=== PATIENT | male | born 1935 | race Caucasian/White ===

== ENCOUNTER 2016-03-27 23:20 | Emergency (ER) | payer MEDICARE, BC | END 2016-03-28 02:41 | disposition home or self-care (01) | DX: R31.0 Gross hematuria (principal); R35.0 Frequency of micturition; R30.0 Dysuria; E10.9 Type 1 diabetes mellitus without complications; Z79.4 Long term (current) use of insulin; Z79.82 Long term (current) use of aspirin ==

== ENCOUNTER 2021-11-20 12:19 | Outpatient (CLI) | payer MEDICARE, BC | END 2021-11-20 12:20 | disposition critical access hospital (66) | LOC: EMS 12:19 | DX: R68.83 Chills (without fever) (principal); R25.1 Tremor, unspecified; R11.0 Nausea | CPT/HCPCS: A0425; A0429 ==

== ENCOUNTER 2021-11-20 12:44 | Emergency (ER) | payer MEDICARE, BC ==
--- NOTE | 2021-11-20 13:04 | ED Physician Documentation ---
History of Present Illness - Stated complaint Stated Complaint: NAUSEA,CHILLS,SHAKING - Chief complaint Chief Complaint: Neuro - History obtained from History obtained from: Patient, Family, EMS - History of Present Illness Timing: Today Pain level max: 0 Pain level now: 0 - Additonal information Additional information: Patient is an 86-year-old male history of urinary incontinence. Diabetes, neuropathy in his feet. states he is able to stand at baseline but is mostly wheelchair-bound. Began having shaking chills at home today as well as nausea. Called EMS. Patient brought here for further evaluation. He denies any pain anywhere. He states he feels very tired. Does have a history of urinary tract infections. No headache. No falls. No trauma. Mild cough. Review of Systems Ten Systems: 10 systems reviewed and negative Constitutional: reports: Chills. denies: Fever Ears: denies: Ear pain Nose: reports: Rhinorrhea / runny nose. denies: Congestion Cardiac: denies: Chest pain / pressure, Palpitations Respiratory: reports: Cough. denies: Dyspnea GI: reports: Nausea. denies: Abdominal Pain, Vomiting, Diarrhea : reports: Incontinent Skin: denies: Rash Musculoskeletal: denies: Neck pain, Back pain Neurologic: denies: Headache PD PAST MEDICAL HISTORY - Past Medical History Past Medical History: Yes Endocrine/Autoimmune: Type 1 diabetes : Other - Past Surgical History Past Surgical History: Yes HEENT: Tonsil/Adenoidectomy - Present Medications Home Medications: Ambulatory Orders Medication Instructions Recorded Confirmed Aspirin [Nj Chewable Aspirin] 81 mg PO DAILY 08/02/14 08/19/14 Insulin Glargine,Hum.rec.anlog 18 units SQ ONCE 08/02/14 08/19/14 [Lantus] Insulin Lispro [Humalog] 5 unit SQ TID 08/02/14 08/19/14 Dicloxacillin Sodium 500 mg PO QID 7 Days capsule 08/19/14 Tamsulosin [Flomax] 0.4 mg PO DAILY 08/19/14 08/19/14 - Allergies Allergies/Adverse Reactions: Allergies Allergy/AdvReac Type Severity Reaction Status Date / Time cephalexin AdvReac Rash Verified 11/20/21 12:51 cephalexin monohydrate * AdvReac Rash Verified 11/20/21 12:51 [From Keflex] shellfish derived AdvReac Rash Verified 11/20/21 12:51 Sulfa (Sulfonamide AdvReac Rash Verified 11/20/21 12:51 Antibiotics) - Living Situation Living Situation: reports: With family Living Arrangement: reports: At home - Social History Does the pt smoke?: No Smoking Status: Never smoker Does the pt drink ETOH?: Yes Does the pt have substance abuse?: No - Immunizations Immunizations are current?: Yes - POLST Patient has POLST: No PD ED PE NORMAL - Vitals Vital signs reviewed: Yes - General General: Alert and oriented X 3, No acute distress, Well developed/nourished - HEENT HEENT: PERRL, Moist mucous membranes - Neck Neck: Supple, no meningeal sign - Cardiac Cardiac: RRR, Strong equal pulses - Respiratory Respiratory: No respiratory distress, Clear bilaterally - Abdomen Abdomen: Soft, Non tender, Non distended - Derm Derm: Warm and dry, No rash - Extremities Extremities: No edema, No calf tenderness / cord, Other (No open wounds on the feet. No cellulitis.) - Neuro Neuro: Alert and oriented X 3 - Psych Psych: Normal mood, Normal affect Results - Vitals Vitals: Vital Signs - 24 hr 11/20/21 11/20/21 11/20/21 12:51 13:24 13:30 Temperature 37.2 C Heart Rate 101 H 96 100 Respiratory 18 23 17 Rate Blood Pressure 173/77 H 154/71 H 134/97 H O2 Saturation 98 97 99 11/20/21 11/20/21 11/20/21 14:00 14:30 15:00 Temperature Heart Rate 97 96 97 Respiratory 19 18 16 Rate Blood Pressure 134/97 H 130/90 H 159/78 H O2 Saturation 97 98 96 11/20/21 11/20/21 15:30 16:00 Temperature 36.5 C Heart Rate 96 98 Respiratory 16 16 Rate Blood Pressure 160/80 H 168/72 H O2 Saturation 98 97 Oxygen O2 Source Room air - EKG (time done) 1251 Rate: Rate (enter#) (101) Rhythm: Sinus tachycardia Clubb: Anterior hemiblock (LAFB) Intervals: Normal MN, RBBB - Labs Labs: Laboratory Tests 11/20/21 11/20/21 11/20/21 13:15 13:15 13:15 WBC 17.9 H RBC 5.11 Hgb 15.4 Hct 46.9 MCV 91.8 MCH 30.1 MCHC 32.8 RDW 13.5 Plt Count 189 MPV 9.8 Neut # (Auto) 16.0 H Lymph # (Auto) 0.7 L [place] # (Auto) 1.1 H Eos # (Auto) 0.0 Baso # (Auto) 0.1 Absolute Nucleated RBC 0.00 Nucleated RBC % 0.0 PT 11.7 INR 1.0 APTT 29.9 Sodium 138 Potassium 4.2 Chloride 102 Carbon Dioxide 27 Anion Gap 9.0 BUN 20 Creatinine 1.0 Estimated GFR (MDRD) 71 L Glucose 173 H Lactic Acid Calcium 9.9 Total Bilirubin 0.6 AST 16 ALT 18 Alkaline Phosphatase 52 Total Protein 7.4 Albumin 4.1 Globulin 3.3 Albumin/Globulin Ratio 1.2 Lipase 28 Urine Color Urine Clarity Urine pH Ur Specific [place] Urine Protein Urine Glucose (UA) Urine Ketones Urine Occult Blood Urine Nitrite Urine Bilirubin Urine Urobilinogen Ur Leukocyte Esterase Ur Microscopic Review Urine Culture Comments Nasal Adenovirus (PCR) Nasal B. parapertussis DNA (PCR) Nasal Coronavir 229E PCR Nasal Coronavir HKU1 PCR Nasal Coronavir NL63 PCR Nasal Coronavir OC43 PCR Nasal Enterovir/Rhinovir PCR Nasal Influenza B PCR Nasal Influenza A PCR Nasal Parainfluen 1 PCR Nasal Parainfluen 2 PCR Nasal Parainfluen 3 PCR Nasal Parainfluen 4 PCR Nasal RSV (PCR) Nasal B.pertussis DNA PCR Nasal C.pneumoniae (PCR) Cameron Human Metapneumo PCR Nasal M.pneumoniae (PCR) Nasal SARS-CoV-2 (PCR) 11/20/21 11/20/21 11/20/21 13:15 13:25 13:32 WBC RBC Hgb Hct MCV MCH MCHC RDW Plt Count MPV Neut # (Auto) Lymph # (Auto) [place] # (Auto) Eos # (Auto) Baso # (Auto) Absolute Nucleated RBC Nucleated RBC % PT INR APTT Sodium Potassium Chloride Carbon Dioxide Anion Gap BUN Creatinine Estimated GFR (MDRD) Glucose Lactic Acid 1.4 Calcium Total Bilirubin AST ALT Alkaline Phosphatase Total Protein Albumin Globulin Albumin/Globulin Ratio Lipase Urine Color YELLOW Urine Clarity CLEAR Urine pH 6.5 Ur Specific [place] 1.015 Urine Protein NEGATIVE Urine Glucose (UA) 100 H Urine Ketones NEGATIVE Urine Occult Blood NEGATIVE Urine Nitrite NEGATIVE Urine Bilirubin NEGATIVE Urine Urobilinogen 0.2 (NORMAL) Ur Leukocyte Esterase NEGATIVE Ur Microscopic Review NOT INDICATED Urine Culture Comments NOT INDICATED Nasal Adenovirus (PCR) NOT DETECTED Nasal B. parapertussis DNA (PCR) NOT DETECTED Nasal Coronavir 229E PCR NOT DETECTED Nasal Coronavir HKU1 PCR NOT DETECTED Nasal Coronavir NL63 PCR NOT DETECTED Nasal Coronavir OC43 PCR NOT DETECTED Nasal Enterovir/Rhinovir PCR NOT DETECTED Nasal Influenza B PCR NOT DETECTED Nasal Influenza A PCR NOT DETECTED Nasal Parainfluen 1 PCR NOT DETECTED Nasal Parainfluen 2 PCR NOT DETECTED Nasal Parainfluen 3 PCR NOT DETECTED Nasal Parainfluen 4 PCR NOT DETECTED Nasal RSV (PCR) NOT DETECTED Nasal B.pertussis DNA PCR NOT DETECTED Nasal C.pneumoniae (PCR) NOT DETECTED Cameron Human Metapneumo PCR NOT DETECTED Nasal M.pneumoniae (PCR) NOT DETECTED Nasal SARS-CoV-2 (PCR) NOT DETECTED - Rads (name of study) cxr Radiology: Final report received, EMP read contemporaneously, See rad report CT abd/pelvis Radiology: Final report received, EMP read contemporaneously, See rad report PD MEDICAL DECISION MAKING - ED course Complexity details: reviewed results, re-evaluated patient, considered differential, d/w patient, d/w family ED course: 86-year-old male with an episode of shaking at home today. Unclear etiology. No loss of consciousness. Had no postictal period. No fevers. No headache. No focal neurological deficits. No trauma. No acute findings on laboratory testing other than a leukocytosis. No evidence of sepsis. He does have constipation on CT scan. Patient adamantly refuses any IV contrast for the CT scan. Patient is requesting to be discharged home at this time. He states that he feels normal. No focal neurological deficits. NIH stroke scale 0. Patient and family counseled regarding signs and symptoms for which I believe and urgent re-evaluation would be necessary. Patient with good understanding of and agreement to plan and is comfortable going home at this time This document was made in part using voice recognition software. While efforts are made to proofread this document, sound alike and grammatical errors may occur. Departure - Departure Disposition: Home, Self Care Clinical Impression: Shaking Constipation Qualifiers: Constipation type: unspecified constipation type Qualified Code(s): K59.00 - Constipation, unspecified Leukocytosis Qualifiers: Leukocytosis type: unspecified Qualified Code(s): D72.829 - Elevated white blood cell count, unspecified Condition: Good Instructions: ED Constipation Follow-Up: Elvis Wren MD [Primary Care Provider] - Within 3 Days Comments: Please follow-up with your doctor for further care. The cause of your symptoms today is unclear. You do have an elevated white blood cell count, but your other markers of infection are negative. Your chest x-ray, viral panel, urinalysis and CT scan do not show any evidence of infection. You do not have any open sores. Please return if you worsen. Drink plenty of fluids. Discharge Date/Time: 11/20/21 16:33
[2021-11-20 13:21] LABS: BASOPHILS # (AUTO) 0.1 10^3/uL (0.0-0.1); BASOPHILS % (AUTO) 0.4 %; EOSINOPHILS % (AUTO) 0.1 %; HCT - HEMATOCRIT 46.9 % (42.0-52.0); HGB - HEMOGLOBIN 15.4 g/dL (14.0-18.0); LYMPHOCYTES # (AUTO) 0.7 10^3/uL (1.5-3.5); LYMPHOCYTES % (AUTO) 3.6 %; MEAN CORPUSCULAR HEMOGLOBIN 30.1 pg (27.0-31.0); MEAN CORPUSCULAR HGB CONC 32.8 g/dL (32.0-36.0); MEAN CORPUSCULAR VOLUME 91.8 fL (80.0-94.0); MEAN PLATELET VOLUME 9.8 fL (7.4-11.4); MONOCYTES # (AUTO) 1.1 10^3/uL (0.0-1.0); MONOCYTES % (AUTO) 6.1 %; NEUTROPHILS % (AUTO) 89.4 %; PLT - PLATELET COUNT 189 10^3/uL (130-450); RED BLOOD COUNT 5.11 10^6/uL (4.70-6.10); RED CELL DISTRIBUTION WIDTH 13.5 % (12.0-15.0); WHITE BLOOD COUNT 17.9 x10^3/uL (4.8-10.8)
--- NOTE | 2021-11-20 13:21 | XRAY Report ---
PROCEDURE: Chest 1 View X-Ray INDICATIONS: cough TECHNIQUE: One view of the chest was acquired. COMPARISON: None FINDINGS: Surgical changes and devices: Ventriculoperitoneal shunt catheter is projected over the right hemith orax. Lungs and pleura: No pleural effusions or pneumothorax. Lungs are clear. Mediastinum: Mediastinal contours appear normal. Heart size is normal. Bones and chest wall: No suspicious bony lesions. Overlying soft tissues appear unremarkable. IMPRESSION: No acute cardiopulmonary findings. Reviewed by: Chelsea Smallwood MD on 11/20/2021 1:19 PM PDT Approved by: Chelsea Smallwood MD on 11/20/2021 1:19 PM PDT Station ID: [id number]
[2021-11-20 13:37] LABS: ALBUMIN 4.1 g/dL (3.2-5.5); ALBUMIN/GLOBULIN RATIO 1.2 (1.0-2.2); BILIRUBIN,TOTAL 0.6 mg/dL (0.2-1.0); CALCIUM 9.9 mg/dL (8.5-10.3); POTASSIUM 4.2 mmol/L (3.5-5.0); TOTAL PROTEIN 7.4 g/dL (6.7-8.2)
[2021-11-20 13:39] LABS: PT - PROTHROMBIN TIME 11.7 secs (9.9-12.6)
[2021-11-20 13:41] LABS: BILIRUBIN,URINE NEGATIVE (NEGATIVE); GLUCOSE, URINE (UA) 100 mg/dL (NEGATIVE); KETONES,URINE (UA) NEGATIVE (NEGATIVE); LEUKOCYTE ESTERASE, URINE NEGATIVE (NEGATIVE); NITRITE,URINE NEGATIVE (NEGATIVE); OCCULT BLOOD,URINE NEGATIVE (NEGATIVE); PH,URINE 6.5 PH (5.0-7.5); PROTEIN,URINE NEGATIVE (NEGATIVE); UROBILINOGEN,URINE 0.2 (NORMAL) E.U./dL (NORMAL)
[2021-11-20 13:44] LABS: CLARITY,URINE CLEAR (CLEAR)
[2021-11-20 13:46] LABS: PARTIAL THROMBOPLASTIN TIME 29.9 secs (24.9-33.3)
[2021-11-20 14:27] LABS: B. PARAPERTUSSIS- RESP PCR PAN NOT DETECTED; B. PERTUSSIS- RESP PCR PANEL NOT DETECTED; C. PNEUMONIAE- RESP PCR PANEL NOT DETECTED; CORONAVIRUS 229E-RESP PCR NOT DETECTED; CORONAVIRUS HKU1-RESP PCR NOT DETECTED; CORONAVIRUS NL63-RESP PCR NOT DETECTED; CORONAVIRUS OC43-RESP PCR NOT DETECTED; HUMAN METAPNEUMOVIRUS NOT DETECTED; INFLUENZA A- RESP PCR PANEL NOT DETECTED; INFLUENZA B - RESP PCR PANEL NOT DETECTED; M. PNEUMONIAE- RESP PCR PANEL NOT DETECTED; PARAINFLUENZA VIRUS 1 NOT DETECTED; PARAINFLUENZA VIRUS 2 NOT DETECTED; PARAINFLUENZA VIRUS 3 NOT DETECTED; PARAINFLUENZA VIRUS 4 NOT DETECTED; RHINOVIRUS/ENTEROVIRUS NOT DETECTED; RSV- RESP PCR PANEL NOT DETECTED; SARS-CoV-2 -RESP PCR PANEL NOT DETECTED
--- NOTE | 2021-11-20 15:58 | CT Report ---
PROCEDURE: Abdomen/Pelvis WO INDICATIONS: Abdominal pain, diffuse TECHNIQUE: Noncontrast 5 mm thick sections acquired from the diaphragms to the symphysis. 5 mm coronal and sagi ttal reformats were then performed. For radiation dose reduction, the following was used: automated exposure control, adjustment of mA and/or kV according to patient size. COMPARISON: None. FINDINGS: Image quality: Excellent. ABDOMEN: Lung bases: Lung bases are clear. Heart size is normal. Solid organs: Liver and spleen are normal in size. Gallbladder is unremarkable Pancreas is normal in contours. No adrenal nodules. Kidneys are normal in size, without hydronephrosis or nephrolithia sis. Peritoneum and bowel: Unenhanced bowel loops demonstrate normal wall thickness and caliber. No free fluid or air. Peritoneal dialysis tubing is present. Prominent colonic stool is present without obs truction. Nodes and vessels: No retroperitoneal or mesenteric adenopathy by size criteria. Aorta and inferior vena cava are normal in caliber. Miscellaneous: Fat-containing umbilical hernia is present. Patchy opacities are noted within the subc utaneous fat of the anterior abdomen. PELVIS: Genitourinary: Bladder wall thickness is normal. Miscellaneous: Fat-containing inguinal hernias are present. Bones: No suspicious bony lesions. No vertebral body compression fractures. L5 pars defect is pres ent. IMPRESSION: Prominent colonic stool consistent with constipation. No obstruction. Reviewed by: Ynes Burnham MD on 11/20/2021 3:57 PM PDT Approved by: Ynes Burnham MD on 11/20/2021 3:57 PM PDT Station ID: [id number]
[2021-11-20 16:03] VITALS: BP 168/72
== END 2021-11-20 16:33 | disposition home or self-care (01) ==
LOC: EDUNIT# → ED 12:44
DX: K59.00 Constipation, unspecified (principal); D72.829 Elevated white blood cell count, unspecified; E10.9 Type 1 diabetes mellitus without complications; Z79.4 Long term (current) use of insulin; Z20.822 Contact with and (suspected) exposure to COVID-19
CPT/HCPCS: 36415; 80053; 81001; 81003; 83605; 83690; 85025; 85610; 85730; 87040; 87086; 87633; 93005; 99283; 99284

== ENCOUNTER 2023-06-10 17:51 | Emergency (ER) | payer BC, MEDICARE, OTHER ==
--- NOTE | 2023-06-10 18:11 | ED Physician Documentation ---
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 Patient is here with his son who is a registered nurse as well as a supportive who are his full-time caregivers at home. He requires full-time caregivers at home because of new worsening weakness ultimately causing patient to be wheelchair-bound. Patient's son reports that he has been having transient episodes of aphasia and right facial drooping since Friday evening todayHe noticed that it was more prominent after he awoke from a nap around 1400 today. They said that they got more worried that maybe this was a stroke and that is what brought them into the emergency department today. Patient's has been noticing that he has been having more coughing seems like he is having more episodes of choking while he is eating. PD PAST MEDICAL HISTORY - Past Medical History Endocrine/Autoimmune: Type 1 diabetes : Other - Past Surgical History Past Surgical History: Yes HEENT: Tonsil/Adenoidectomy - Present Medications Home Medications: Ambulatory Orders Medication Instructions Recorded Confirmed Aspirin [Nj Chewable Aspirin] 81 mg PO DAILY 08/02/14 08/19/14 Insulin Glargine,Hum.rec.anlog 18 units SQ ONCE 08/02/14 08/19/14 [Lantus] Insulin Lispro [Humalog] 5 unit SQ TID 08/02/14 08/19/14 Dicloxacillin Sodium 500 mg PO QID 7 Days capsule 08/19/14 Tamsulosin [Flomax] 0.4 mg PO DAILY 08/19/14 08/19/14 - Allergies Allergies/Adverse Reactions: Allergies Allergy/AdvReac Type Severity Reaction Status Date / Time cephalexin AdvReac Rash Verified 06/10/23 18:16 cephalexin monohydrate * AdvReac Rash Verified 06/10/23 18:16 [From Keflex] shellfish derived AdvReac Rash Verified 06/10/23 18:16 Sulfa (Sulfonamide AdvReac Rash Verified 06/10/23 18:16 Antibiotics) - Social History Does the pt smoke?: No Smoking Status: Never smoker Does the pt drink ETOH?: Yes Does the pt have substance abuse?: No - Immunizations Immunizations are current?: Yes - POLST Patient has POLST: No PD ED PE NORMAL - Vitals Vital signs reviewed: Yes - General General: Alert and oriented X 3, No acute distress, Other (Ill-appearing) - HEENT HEENT: Atraumatic, PERRL, EOMI, Moist mucous membranes - Neck Neck: No bony TTP, No JVD - Cardiac Cardiac: RRR, No murmur, No gallop, Strong equal pulses - Respiratory Respiratory: No respiratory distress - Abdomen Abdomen: Soft - Derm Derm: Normal color - Neuro Neuro: Alert and oriented X 3, Other (Right facial droop with right pronator drift of the right upper extremity and right lower extremity. Right upper and right lower extremity 2 out of 5 strength With expressive aphasia) Eye Opening: Spontaneous Motor: Obeys Commands Verbal: Oriented GCS Score: 15 - Psych Psych: Normal mood PD ED PE EXPANDED - Neuro Neuro: Weakness, Abnormal sensation, Right face, Aphasia Results - Vitals Vitals: Vital Signs - 24 hr 06/10/23 06/10/23 06/10/23 18:11 18:41 20:31 Temperature 36.4 C L Heart Rate 86 72 80 Respiratory 20 16 18 Rate Blood Pressure 150/83 H 166/76 H O2 Saturation 98 96 96 06/10/23 21:00 Temperature Heart Rate 114 H Respiratory 20 Rate Blood Pressure 109/69 O2 Saturation 93 Oxygen O2 Source Room air - Labs Labs: Laboratory Tests 06/10/23 06/10/23 06/10/23 16:22 16:22 18:50 WBC 8.8 RBC 5.25 Hgb 15.3 Hct 48.3 MCV 92.0 MCH 29.1 MCHC 31.7 L RDW 14.4 Plt Count 263 MPV 9.8 Neut # (Auto) 5.9 Lymph # (Auto) 1.8 [place] # (Auto) 0.8 Eos # (Auto) 0.2 Baso # (Auto) 0.1 Absolute Nucleated RBC 0.00 Nucleated RBC % 0.0 Sodium 138 Potassium 3.7 Chloride 105 Carbon Dioxide 27 Anion Gap 6.0 BUN 19 Creatinine 1.0 Estimated GFR (MDRD) 71 L Glucose 92 Calcium 10.1 Magnesium 1.9 Total Bilirubin 0.4 AST 11 ALT 12 Alkaline Phosphatase 54 Total Protein 7.2 Albumin 4.0 Globulin 3.2 Albumin/Globulin Ratio 1.3 Lipase 11 Urine Color YELLOW Urine Clarity CLEAR Urine pH 5.5 Ur Specific [place] 1.025 Urine Protein NEGATIVE Urine Glucose (UA) NEGATIVE Urine Ketones NEGATIVE Urine Occult Blood TRACE-INTA Urine Nitrite NEGATIVE Urine Bilirubin NEGATIVE Urine Urobilinogen 0.2 (NORMAL) Ur Leukocyte Esterase NEGATIVE Ur Microscopic Review NOT INDICATED Urine Culture Comments NOT INDICATED - Rads (name of study) Head CT without Relevant Findings:: Final report received, EMP independent interpretation of test, Other (No acute intracranial abnormalities or findings) Head and neck angio Relevant Findings:: Final report received, EMP independent interpretation of test, Other (No significant intracranial or neck arterial abnormalities) PD Medical Decision Making - ED course ED course: 87-year-old male presents emergency department for right facial droop expressive aphasia and right sided weakness.NIH stroke scale of 11 points but given that we were unable to get a concrete last known normal and it appears that the patient's last known normal was most likely on Friday he is not a candidate for TNK and for these reasons I did not reach out to telestroke. CT head was complete without contrast no intracranial hemorrhages or abnormalities CT angio head and neck was also complete which did not reveal any intracranial arterial abnormalities and no neck arterial abnormalities. Patient is not a candidate to have an MRI here at this hospital because he has a INSULATION BLANKET MAKER shunt due to hydrocele that was placed about 10 to 11 years ago I told the family that patient would benefit from transfer to an outside facility where they have neurology onsite and have the ability to turn off and manage INSULATION BLANKET MAKER shunt to do an MRI for further evaluation of stroke symptoms. Patient's son who is an RN is very kind and says that at this point in time they have had a multitude of very poor hospitalizations with [facility] as well as [facility] and at this point in time they do not want to pursue hospitalization for stroke symptoms. I informed the son that patient would benefit greatly from inpatient speech pathology, Occupa tional Therapy, physical therapy for patient's new right-sided deficits and that I am quite concerned about his aphasia and concerned about as well as dysphagia and aspiration pneumonia patient's son said that he agrees he is also concerned about this but says that he has close contact with his primary care provider and will be reaching out tomorrow for a referral for all of these specialist to be done outpatient as well as possibly considering pursuing an MRI outpatient. Patient's son said that they have a very realistic view on patient's goals of care and believe that they are more than competent capable to manage patient's care at home when they are actually in the process of pursuing palliative care for patient patient was on hospice for a brief moment last year but had to be taken off of hospice as he recovered so well from his urinary tract infection. Urinalysis was also complete for further evaluation of possible cognitive impairment due to UTI but urinalysis was found to be unremarkable no leukocytes no nitrates.Labs did not show any significant abnormalities including CBC or CMP that could be contributing to patient's neurological deficits. Patient was given 325 mg of aspirin here in the emergency department they were told that they change their mind to please present back to the emergency department for further evaluation and they feel that they understand the risk quite well taking patient home and are aware that this could be worsening stroke symptoms that could eventually lead to . Patient agrees to the plan he is alert and oriented x 3 he says that he feels very well cared for with his family and would like to avoid hospitalization at this point in time. Departure - Departure Disposition: 01 Home, Self Care Clinical Impression: TIA (transient ischemic attack), Aphasia Dysphagia Qualifiers: Dysphagia type: unspecified Qualified Code(s): R13.10 - Dysphagia, unspecified Instructions: TIA Comments: Thank you for trusting us with your care. I believe that your father is experiencing TIA for stroke and as we discussed I am recommending hospitalization but it sounds like you trent have a lot of support at home to take care of her father at home at this point in time. You are all aware of the risk with this possible worsening stroke And my concern of aspiration. If your father does have any worsening symptoms or you guys change her mind for hospitalization feel free to come back to the emergency department. Follow-up with your primary care provider for possible outpatient MRI of course with shared decision making as ordered and goals and interventions that you guantionette are desiring. I also asked for a possible speech pathology referral as well as possible in-home therapy such as occupational and physical therapy to help with recovery of this TIA versus stroke. Wishing you the best as you help support her father at home and again please come back into the emergency department if you change your mind and are wishing for any further interventions. Kindly, Ashlie Bose, DNP Forms: PCP List Discharge Date/Time: 06/10/23 21:41
[2023-06-10 18:36] LABS: BASOPHILS # (AUTO) 0.1 10^3/uL (0.0-0.1); BASOPHILS % (AUTO) 0.9 %; EOSINOPHILS # (AUTO) 0.2 10^3/uL (0.0-0.7); EOSINOPHILS % (AUTO) 1.8 %; HCT - HEMATOCRIT 48.3 % (42.0-52.0); HGB - HEMOGLOBIN 15.3 g/dL (14.0-18.0); LYMPHOCYTES # (AUTO) 1.8 10^3/uL (1.5-3.5); LYMPHOCYTES % (AUTO) 20.8 %; MEAN CORPUSCULAR HEMOGLOBIN 29.1 pg (27.0-31.0); MEAN CORPUSCULAR HGB CONC 31.7 g/dL (32.0-36.0); MEAN PLATELET VOLUME 9.8 fL (7.4-11.4); MONOCYTES # (AUTO) 0.8 10^3/uL (0.0-1.0); MONOCYTES % (AUTO) 9.4 %; NEUTROPHILS # (AUTO) 5.9 10^3/uL (1.5-6.6); NEUTROPHILS % (AUTO) 66.5 %; PLT - PLATELET COUNT 263 10^3/uL (130-450); RED BLOOD COUNT 5.25 10^6/uL (4.70-6.10); RED CELL DISTRIBUTION WIDTH 14.4 % (12.0-15.0); WHITE BLOOD COUNT 8.8 x10^3/uL (4.8-10.8)
[2023-06-10] MEDS ORDERED: iohexoL-300 100 ML VIAL ONE ×2 (18:39→18:40)
[2023-06-10 18:48] LABS: ALBUMIN/GLOBULIN RATIO 1.3 (1.0-2.2); BILIRUBIN,TOTAL 0.4 mg/dL (0.2-1.0); CALCIUM 10.1 mg/dL (8.5-10.3); MAGNESIUM 1.9 mg/dL (1.7-2.3); POTASSIUM 3.7 mmol/L (3.5-4.5); TOTAL PROTEIN 7.2 g/dL (6.4-8.9)
[2023-06-10 19:04] LABS: BILIRUBIN,URINE NEGATIVE (NEGATIVE); GLUCOSE, URINE (UA) NEGATIVE (NEGATIVE); KETONES,URINE (UA) NEGATIVE (NEGATIVE); LEUKOCYTE ESTERASE, URINE NEGATIVE (NEGATIVE); NITRITE,URINE NEGATIVE (NEGATIVE); OCCULT BLOOD,URINE TRACE-INTA (NEGATIVE); PH,URINE 5.5 PH (5.0-7.5); PROTEIN,URINE NEGATIVE (NEGATIVE); UROBILINOGEN,URINE 0.2 (NORMAL) E.U./dL (NORMAL)
[2023-06-10 19:06] LABS: CLARITY,URINE CLEAR (CLEAR)
--- NOTE | 2023-06-10 20:31 | CT Report ---
PROCEDURE: Angio Head/Neck INDICATIONS: Right facial droop` TECHNIQUE: After the administration of intravenous contrast, 1 mm thick sections acquired from the aortic arch t hrough the [place] of [place]. 3-dimensional xduswzm-ojlfszscy-ycwbucvpme (MIP) and/or volume renderin g reformats were acquired of the central intracranial vasculature and neck separately. For radiation dose reduction, the following was used: automated exposure control, adjustment of mA and/or kV acco rding to patient size. CONTRAST: Ommno 300 80ml COMPARISON: Same day head CT. FINDINGS: Image quality: Diagnostic. HEAD CT: CSF Spaces: Basal cisterns are patent. No extra-axial fluid collections. Ventricles are normal in size and shape. PAN CLEANER shunt catheter present. Brain: No significant abnormality is seen for scanning technique. Skull and face: Calvarium and visualized facial bones appear intact, without suspicious lesions. Sinuses: Visualized sinuses and mastoids are clear. HEAD CT ANGIOGRAPHY: Anterior circulation: Intracranial internal carotid arteries are normal in size and flow. The flow within the paired anterior cerebral arteries is normal and symmetric. The flow within the middle cer ebral arteries is normal and symmetric. The anterior communicating artery is seen. No aneurysms are seen. Posterior circulation: Visualized portions of the vertebral arteries demonstrate normal caliber, and join to form a normal appearing basilar artery. Flow within the posterior cerebral arteries is norm al and symmetric. No aneurysms are seen. NECK CT ANGIOGRAPHY: Carotid system: The great vessels demonstrate a conventional anatomy as they arise from the aortic a rch. The origins of the common carotid arteries appear patent. The common carotid arteries demonstr ate normal caliber and courses. The bifurcation regions are both widely patent. The internal caroti d arteries demonstrate normal calibers and courses. Posterior circulation: The origins of the vertebral arteries both appear widely patent. The more goldstein perior extracranial portions of both vertebral arteries also demonstrate normal courses and calibers. They join to form a normal appearing basilar artery. Soft tissues: Visualized neck soft tissues demonstrate no suspicious abnormalities. Bones: No suspicious bony lesions. Visualized cervical spine appears normally aligned. IMPRESSION: No significant intracranial arterial abnormality is seen. No significant abnormality is seen within the arteries of the neck. The estimate of stenosis included in the report of the imaging study was calculated using the NASCET method Reviewed by: Ian Guzman MD on 06/10/2023 8:29 PM PDT Approved by: Ian Guzman MD on 06/10/2023 8:29 PM PDT Station ID: [id number]
--- NOTE | 2023-06-10 20:32 | CT Report ---
PROCEDURE: Head WO INDICATIONS: right facial droop TECHNIQUE: Noncontrast 4.5 mm thick angled axial sections acquired from the foramen magnum to the vertex. For r adiation dose reduction, the following was used: automated exposure control, adjustment of mA and/or kV according to patient size. COMPARISON: None. FINDINGS: Image quality: Excellent. CSF spaces: Basal cisterns are patent. No extra-axial fluid collections. Ventricles are normal in size and shape. Right lower posterior approach HOSE TESTER shunt catheter present, terminating within the lat eral ventricle. Brain: No midline shift. No intracranial masses or hemorrhage. [place]-white matter interface is norm al. Skull and face: Calvarium and visualized facial bones are intact, without suspicious lesions. Sinuses: Visualized sinuses and mastoids are clear. IMPRESSION: No acute intracranial pathology. Reviewed by: Ian Guzman MD on 06/10/2023 8:31 PM PDT Approved by: Ian Guzman MD on 06/10/2023 8:31 PM PDT Station ID: [id number]
[2023-06-10] MEDS: iohexoL-300 100 ML VIAL IVP ONE (21:20)
[2023-06-10] MEDS: ASPIRIN 325 MG TABLET PO STA (21:24)
[2023-06-10 21:36] VITALS: BP 109/69; O2SAT 93
== END 2023-06-10 21:41 | disposition home or self-care (01) ==
LOC: ED 17:51
DX: G45.9 Transient cerebral ischemic attack, unspecified (principal); R47.01 Aphasia; R13.10 Dysphagia, unspecified; R29.711 NIHSS score 11; E10.9 Type 1 diabetes mellitus without complications; Z86.73 Personal history of transient ischemic attack (TIA), and cerebral infarction without residual deficits; N43.3 Hydrocele, unspecified; Z98.2 Presence of cerebrospinal fluid drainage device; Z79.4 Long term (current) use of insulin; Z79.899 Other long term (current) drug therapy
CPT/HCPCS: 36415; 51701; 70450; 70496; 70498; 80053; 81003; 83690; 83735; 85025; 99283; 99284; A9270; Q9967; 81001; 87086